=== PATIENT | female | born 1955 | race Caucasian/White ===

== ENCOUNTER 2016-08-20 16:38 | Emergency (ER) | payer OTHER ==
[~2016-08-20] VITALS: Ht 154.9 cm; Wt 60.0 kg
[~2016-08-20 16:38] MED LIST: CIPR-173; denies new meds/allergies
[2016-08-20 16:40] VITALS: Ht 154.9 cm; Wt 60.0 kg
[2016-08-20] MEDS ORDERED: LIDOCAINE 1% (MDV) 20 ML INJ SC ONE (18:30)
[2016-08-20] MEDS ORDERED: DOXY100T20 PO (19:56)
[2016-08-20] MEDS ORDERED: ASPIRIN 81 MG TAB PO ONE (20:00)
--- NOTE | 2016-08-20 20:06 | ERD ---
ER Documentation Chief Complaint Date/Time DATE: 08/20/16 TIME: 20:00 Chief Complaint right shoulder abscess HPI This is a 60-year-old female presenting to emergency department for right shoulder abscess 2 weeks. Patient reports pain, swelling, warmth and erythema to right posterior shoulder. There is no drainage. No fevers or chills. No streaking. ROS All systems reviewed and are negative except as per history of present illness. Medications Home Meds Active Scripts Doxycycline Hyclate* (Doxycycline Hyclate*) 100 Mg Tablet., 100 MG PO BID for 7 Days, TAB Prov:YASEMIN CHOWDHURY NP 08/20/16 Reported Medications [denies new meds/allergies] No Conflict Check 02/17/13 Ciprofloxacin Hcl (Cipro) 500 Mg Tablet 04/01/10 Allergies Allergies: Coded Allergies: Cyclobenzaprine (Verified Allergy, Mild, 02/17/13) Prochlorperazine (Verified Allergy, Mild, 02/17/13) alprazolam (Verified Allergy, Mild, 02/17/13) ibuprofen (Verified Allergy, Mild, 02/17/13) meclizine (Verified Allergy, Mild, 04/01/10) penicillin G (Verified Allergy, Mild, 04/01/10) triamcinolone (Verified Allergy, Mild, 04/01/10) acetaminophen (Verified Allergy, 02/17/13) nausea vomiting hydrocodone bit (Verified Allergy, 02/17/13) nausea vomiting Uncoded Allergies: PENICILLIN (Allergy, 02/17/13) PMhx/Soc History of Surgery: Yes (CA OF UTERUS (REMOVED) 1984, CA OF LEFT EYE LID 2006.) Anesthesia Reaction: No Hx Neurological Disorder: No Hx Respiratory Disorders: No Hx Cardiac Disorders: No Hx Psychiatric Problems: Yes (DEPRESSION, ANXIETY) Hx Alcohol Use: No Hx Substance Use: No Hx Tobacco Use: No Smoking Status: Never smoker Physical Exam Vitals Vital Signs Date Time Temp Pulse Resp B/P Pulse Ox O2 Delivery O2 Flow Rate FiO2 08/20/16 16:40 981.1 78 19 139/75 97 Physical Exam Const: No acute distress, alert Head: Atraumatic Eyes: Normal Conjunctiva ENT: Normal External Ears, Nose and Mouth. Neck: Full range of motion..~ No meningismus. Resp: Clear to auscultation bilaterally Cardio: Regular rate and rhythm, no murmurs Abd: Soft, non tender, non distended. Normal bowel sounds Skin: 3 inch abscess to right posterior shoulder. there is surrounding erythema, warmth. no drainage. there is an area of fluctuance to 6 o'clock region of abscess. no induration. no streaking. Back: No midline or flank tenderness Ext: No cyanosis, or edema Neur: Awake and alert Psych: Normal Mood and Affect Results 24 hrs Current Medications Medications (Trade) Dose Ordered Sig/Jessy Route PRN Reason Start Time Stop Time Status Last Admin Dose Admin Lidocaine (Xylocaine 1% (Mdv) 20 ml) 20 ml ONCE ONCE SC 08/20/16 18:30 08/20/16 18:31 DC Aspirin (Aspirin) 81 mg ONCE ONCE PO 08/20/16 20:00 08/20/16 20:01 Procedures/MDM MDM: 60 year old female presenting to ER with abscess to right shoulder. Patient has warmth, surrounding erythema with an area of fluctuance to 6 o clock region of abscess. Abscess Incision and Drainage with irrigation by me: verbal consent obtained prior to procedure. Location: right posterior shoulder Anesthesia: Local 1% Lidocaine Technique: Irrigated. Disrupted loculations w/ instrumentation Packin inches of 1/4 inch packing Complications: Neurovascularly intact post procedure 48 hour wound check. Scar minimization instructions given. Patient's skin symptoms have stabilized while they have been evaluated in the department and are appropriate for outpatient care and work up. Patient will be given prescription for doxycycline 100 mg twice daily 7 days. Exam and w/u not consistent w/ sepsis, deep space infection, or foreign body. Departure Diagnosis: Primary Impression: Abscess Condition: Stable Patient Instructions: Abscess, Incision And Drainage Additional Instructions: Return to ED in 2 days for wound check. Return to ED for any high fever, chest pain, difficulty breathing, shortness breath, wheezing, vomiting, diarrhea, abdominal pain or any new or worsening symptoms. YASEMIN CHOWDHURY NP August 20, 2016 20:06
== END 2016-08-20 20:12 | disposition home or self-care (01) ==
LOC: FTE 16:38
DX: L02.413 Cutaneous abscess of right upper limb (principal)
CPT/HCPCS: 10061; Z7502; Z7610

== ENCOUNTER 2016-08-28 23:19 | Emergency (ER) | payer OTHER ==
[~2016-08-28] VITALS: Ht 162.6 cm; Wt 63.0 kg
[~2016-08-28 23:19] MED LIST changes: +DOXY100T20 PO
[2016-08-28 23:24] VITALS: Ht 162.6 cm; Wt 63.0 kg
== END 2016-08-29 07:13 | disposition left against medical advice (07) ==
LOC: FTE 23:19
DX: Z53.21 Procedure and treatment not carried out due to patient leaving prior to being seen by health care provider (principal)

== ENCOUNTER 2018-08-28 15:24 | Emergency (ER) | payer OTHER ==
[~2018-08-28] VITALS: Wt 62.0 kg
[2018-08-28] MEDS ORDERED: IBUPROFEN 200 MG TAB PO ONE (17:00)
--- NOTE | 2018-08-28 17:51 | ERD ---
ER Documentation Chief Complaint Chief Complaint RIGHT FOOT PAIN AFTER A FAll HPI 62-year-old female presents with right foot pain after excellently kicking a barbell at home. She denies any fall, restricted range of motion or weakness. She did see her primary doctor who stated that she may have an infection altho ugh no x-ray was performed. She has no restricted range of motion, weakness, fevers. She initially has some irritation or redness but that resolved. ROS All systems reviewed and are negative except as per history of present illness. Medications Home Meds Active Scripts Doxycycline Hyclate* (Doxycycline Hyclate*) 100 Mg Tablet., 100 MG PO BID for 7 Days, TAB Prov:YASEMIN CHOWDHURY NP 08/20/16 Reported Medications [denies new meds/allergies] No Conflict Check 02/17/13 Ciprofloxacin Hcl (Cipro) 500 Mg Tablet 04/01/10 Allergies Allergies: Coded Allergies: Cyclobenzaprine (Verified Allergy, Mild, 02/17/13) Prochlorperazine (Verified Allergy, Mild, 02/17/13) alprazolam (Verified Allergy, Mild, 02/17/13) ibuprofen (Verified Allergy, Mild, 02/17/13) meclizine (Verified Allergy, Mild, 04/01/10) penicillin G (Verified Allergy, Mild, 04/01/10) triamcinolone (Verified Allergy, Mild, 04/01/10) acetaminophen (Verified Allergy, 02/17/13) nausea vomiting hydrocodone bit (Verified Allergy, 02/17/13) nausea vomiting Uncoded Allergies: PENICILLIN (Allergy, 02/17/13) PMhx/Soc History of Surgery: Yes (CA OF UTERUS (REMOVED) 1984, CA OF LEFT EYE LID 2006.) Anesthesia Reaction: No Hx Neurological Disorder: No Hx Respiratory Disorders: No Hx Cardiac Disorders: No Hx Psychiatric Problems: Yes (DEPRESSION, ANXIETY) Hx Alcohol Use: No Hx Substance Use: No Hx Tobacco Use: No Smoking Status: Never smoker FmHx Family History: No diabetes, No coronary disease, No other Physical Exam Vitals Vital Signs Date Temp Pulse Resp B/P (MAP) Pulse Ox O2 O2 Flow FiO2 Time Delivery Rate 08/28/18 98.0 80 17 148/90 98 Room Air 18:44 (109) 08/28/18 97.9 72 18 165/83 99 15:26 (110) Physical Exam Const: No acute distress Head: Atraumatic Eyes: Normal Conjunctiva ENT: Normal External Ears, Nose and Mouth. Neck: Full range of motion. No meningismus. Resp: Clear to auscultation bilaterally Cardio: Regular rate and rhythm, no murmurs Abd: Soft, non tender, non distended. Normal bowel sounds Skin: No petechiae or rashes Back: No midline or flank tenderness Ext: No cyanosis, or edema. Tenderness primarily over the right midfoot and the third metatarsal area. No deformities, restricted range of motion, weakness, warmth, erythema or bleeding. Neur: Awake and alert Psych: Normal Mood and Affect Results 24 hrs Current Medications Medications Dose Sig/Jessy Start Time Status Last (Trade) Ordered Route PRN Stop Time Admin Dose Reason Admin Ibuprofen 400 mg ONCE ONCE 08/28/18 DC 08/28/18 (Motrin) PO 17:00 16:55 08/28/18 17:01 Procedures/MDM X-ray Foot 3V Interpreted by me: Bones: Nondisplaced right midshaft third metatarsal fracture Joints: No dislocation Foreign body: None. Impression-nondisplaced right third metatarsal shaft fracture. X-ray right ankle 3V Interpreted by me: Bones: No fracture Joints: No dislocation Foreign Body: None. Impression-normal right ankle x-ray Patient is placed in a right lower extremity walker boot and was neurovascular intact after the boot. Patient presents with signs and symptoms of right foot fracture without signs of ischemia, deficits or infection. She will be discharged home in a boot with instructions for orthopedic follow-up. She should return for fevers, redness, new worsening symptoms. She is advised she may need authorization from primary doctor for orthopedist visit. The patient was stable with no new complaints during the ER course. Clinically, there is no current evidence to suggest meningitis, sepsis, acute abdomen, pneumonia, stroke, acute coronary syndrome, pulmonary embolism, aortic dissection or any other emergent condition appearing to require further evaluation or hospitalization. Patient counseled regarding my diagnostic impression and care plan. Prior to discharge all questions answered. Pt agrees with treatment plan and understands strict return precautions. Pt is instructed to follow up with primary care provider within 24-48 hours. Precautionary instructions provided including instructions to return to the ER if not improving or for any worsening or changing symptoms or concerns. Disclaimer: Inadvertent spelling and grammatical errors are likely due to EHR/dictation software use and do not reflect on the overall quality of patient care. Also, please note that the electronic time recorded on this note does not necessarily reflect the actual time of the patient encounter. Departure Diagnosis: Primary Impression: Fracture of foot Encounter type: initial encounter Fracture type: closed Laterality: right Qualified Codes: S92.901A - Unspecified fracture of right foot, initial encounter for closed fracture Condition: Stable Patient Instructions: Fracture, Foot Referrals: CELE AN MD [facility] Hours: Mon-Mon 9:00 AM - 5:00 PM Additional Instructions: There is a nondisplaced fracture in the area of pain of your foot. See orthopedist for further evaluation and treatment. Recheck for redness, fevers, new or worsening symptoms. May need authorization from primary doctor for specialist visit. GRAYSON LITTLE MD August 28, 2018 17:51
[2018-08-28 18:44] VITALS: BP 148/90; PULSE 80; RESP 17
== END 2018-08-28 18:45 | disposition home or self-care (01) ==
LOC: FTE 15:24
DX: S92.324A Nondisplaced fracture of second metatarsal bone, right foot, initial encounter for closed fracture (principal); W01.198A Fall on same level from slipping, tripping and stumbling with subsequent striking against other object, initial encounter; Y92.9 Unspecified place or not applicable; Z85.42 Personal history of malignant neoplasm of other parts of uterus; Z85.840 Personal history of malignant neoplasm of eye
CPT/HCPCS: 73610; 73630; L4386; Z7502; Z7610